=== PATIENT | female | born 1945 | race Caucasian/White ===

== ENCOUNTER 2018-04-12 11:58 | Observation (INO) ==
[2018-04-12] MEDS ORDERED: Naloxone 0.4 MG/ML INJ IVP PRN (15:32)
[2018-04-12] MEDS ORDERED: Acetaminophen 325 MG TABLET PO PRN (15:32)
[2018-04-12] MEDS ORDERED: D5% in Water 1,000 ML IVC PRN (15:37)
[2018-04-12] MEDS ORDERED: *HR* Dextrose 50 % in Water (Syg) 50 ML SYRINGE IVP PRN (15:37)
[2018-04-12] MEDS ORDERED: Dextrose Gel 15 GM/37.5 ML TUBE PO PRN ×2 (15:37)
[2018-04-12 16:16] LABS: INR 2.2; Prothrombin Time 24.4 Seconds (9.4-12.1)
--- NOTE | 2018-04-12 16:23 | Internal Med History&Physical ---
Date of Encounter: 04/12/18 Time of Encounter: 16:17 Internal Medicine - H&P: HPI Chief complaint: bradycardia Admitted From: Home Plans for Post Hospital Care: Home History of present illness: Ms. Nash is a 72 year old female past medical history significant for diabetes, A. fib, bilateral total knee replacement, hypertension and hyperlipidemia. Patient was transferred to this hospital from [place] emergency room where the patient went following a fall this morning at around 9 AM. The patient recalls that today morning she felt that she was on A. fib, base and checking her pulse and while she was getting out of the tub she slip, fell and he her left hip and left side of the chest. For which she went to [place] emergency room. She denies lightheadedness, dizziness, shortness of breath or chest pain before the fall. Also denies hitting her head or losing consciousness. While in the emergency room and [place] the patient became bradycardic with a heart rate of 32 which was managed with IV fluid and atropine. And the patient was transferred to this hospital for further evaluation. Patient reports that she usually takes an extra dose of half a pill of metoprolol when she feels that she is on A. fib. But recalls that today she has not taken any medication. Past Med Surg Social Fam HX - Past Medical History Medical history: diabetes, GERD, atrial fibrillation, hyperlipidemia, hypertension Additional medical history: anxiety/depression Psychiatric history: anxiety, depression - Past Surgical History Additional surgical history: BILAT KNEE REPLACEMENT, LT FOOT SURG, D&C X 2 - Social History Smoking Status: Former smoker Smokeless Tobacco Status: No Alcohol use: none Drug use: none - Family History Mother Hx Family Cardiac Disorders: Yes Father Hx Family Cardiac Disorders: Yes Internal Medicine - H&P: Meds Aspirin [Lo-Dose Aspirin EC] 81 mg PO DAILY 06/06/17 [History] Atorvastatin [Lipitor] 10 mg PO HS 06/06/17 [History] Calcium Citrate/Vitamin D2 [Calcium with Vit D Tablet] 1 each PO DAILY 06/06/17 [History] Cholecalciferol (D-3) [Vitamin D] 1,000 unit PO DAILY 06/06/17 [History] Dicyclomine [Bentyl] 10 mg PO QID PRN 06/06/17 [History] Ergocalciferol (VITAMIN D2) [Vitamin D] 400 unit PO DAILY 06/06/17 [History] Esomeprazole Magnesium [Nexium] 40 mg PO DAILY 06/06/17 [History] Fluvoxamine Maleate [Fluvoxamine Maleate ER] 100 mg PO DAILY 06/06/17 [History] Furosemide [Lasix] 30 mg PO DAILY 06/06/17 [History] Insulin ASPART [Novolog] 8 unit SQ ACHS 06/06/17 [History] Insulin Glargine,Hum.rec.anlog [Lantus Solostar] 38 unit SQ HS 06/06/17 [History ] LORazepam [Ativan] 0.5 mg PO TID PRN 06/06/17 [History] Metformin HCl [Glucophage Xr] 500 mg PO DAILY 06/06/17 [History] Metoprolol Tartrate [Lopressor] 50 mg PO BID 06/06/17 [History] Multivit-Min/FA/Lycopen/Lutein [Centrum Silver Tablet] 1 each PO DAILY 06/06/17 [History] Ubidecarenone [Coq10] 50 mg PO DAILY 06/06/17 [History] Valsartan [Diovan] 160 mg PO DAILY 06/06/17 [History] Warfarin [Coumadin] 5 mg PO 1800 06/06/17 [History] amLODIPine [Norvasc] 5 mg PO DAILY 06/06/17 [History] Insulin ASPART [NovoLOG] See Protocol SQ ACHS 04/12/18 [History] 3 Allergy/AdvReac Type Severity Reaction Status Date / Time Minocycline [From Minocin] Allergy Hives Verified 06/06/17 19:45 Sulfa (Sulfonamide Allergy Rash Verified 11/12/15 05:37 Antibiotics) sulfamethoxazole Allergy Rash Verified 11/12/15 05:37 [From Bactrim] trimethoprim [From Bactrim] Allergy Rash Verified 11/12/15 05:37 amiodarone AdvReac See Verified 11/12/15 05:37 Comments azithromycin [From Zithromax] AdvReac Back Pain Verified 11/12/15 05:37 Cefaclor [From Ceclor] AdvReac See Verified 11/12/15 05:37 Comments ciprofloxacin [From Cipro] AdvReac See Verified 11/12/15 05:37 Comments dronedarone [From Multaq] AdvReac See Verified 11/12/15 05:37 Comments Erythromycin Base AdvReac Back Pain Verified 11/12/15 05:37 nifedipine [From Procardia] AdvReac See Verified 11/12/15 05:37 Comments ofloxacin [From Floxin] AdvReac Joint Pain Verified 11/12/15 05:37 Penicillins AdvReac See Verified 11/12/15 05:37 Comments Tetracyclines AdvReac Nausea Verified 11/12/15 05:37 All Systems PM: A 10-system review of systems was performed and is negative for pertinent findings except as documented above in the HPI. - Constitutional Constitutional: chills, no fever(s), no lethargy, no malaise, no weakness, no weight loss - EENT Eyes: no blurry vision, no floaters, no loss of peripheral vision Nose, mouth and throat: no change in voice, no dry mouth - Cardiovascular Cardiovascular ROS IM: no chest pain, no edema, no irregular heart rhythm, no lightheadedness, no orthopnea, no palpitations, no paroxysmal nocturnal dyspnea , no syncope - Respiratory Respiratory: no cough, no wheezing, no snoring - Gastrointestinal Gastrointestinal: no coffee ground emesis, no excessive flatus, no hematemesis, no hematochezia, no melena, no nausea, no vomiting - Musculoskeletal Musculoskeletal ROS IM: no back pain, no muscle cramps, no numbness, no stiffness - Psychiatric Psychiatric: no anxiety, no confusion, no depression - Constitutional Vitals: Temp Pulse Resp BP Pulse Ox 97.9 F 63 18 156/75 99 04/12/18 14:28 04/12/18 14:28 04/12/18 14:28 04/12/18 14:28 04/12/18 14:28 Exam: General: Alert and oriented 4. no acute distress Skin: Normal color, no rash, no lesions. HEENT:EOM, pupils equal, round and reactive. Cardiovascular: Irregularly, irrregular, Normal S1 & S2, no rubs, murmurs or gallops.Unable to eval JVD due to short neck. Lungs: Clear to auscultation bilaterally, no wheezes or crackles. Abdomen: Obese, Soft, non-tender, no rigidity. Extremities:No deformity, no edema or tenderness, no joint swelling or clubbing. b/l surgical scars at both knees. Neurological: Normal cognition and motor skills. CN II-XII intact. Rest of the physical exam is non contributory - Assessment and plan (1) Bradycardia Current Visit: No Status: Acute Assessment and plan: Patient transferred to this hospital due to an episode of bradycardia HR 32, given atropine. NO chest pain, lightheadedness or dizziness. No signs of active infectious process. 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 BMP for electrolytes abnormalities. 12 lead EKG (2) History of atrial fibrillation Current Visit: No Status: Acute Assessment and plan: Patient presenting with bradycardia Plan: plan of care as per #1 problem will continue Warfarin, pharmacy dosing Will continue Metoprolol 25mg/PO BID with holding parameters for HR <60. As per patient if she misses a dose of her medication she will go into A.fib with RvR. Cardiology consulted. 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 Qualifiers: Hypertension type: unspecified Qualified Code(s): I10 - Essential (primary ) hypertension (5) HLD (hyperlipidemia) Current Visit: Yes Status: Acute Assessment and plan: Continue home medication. Atorvastatin 10mg/PO daily Qualifiers: Qualified Code(s): E78.5 - Hyperlipidemia, unspecified (6) Fall Current Visit: No Status: Acute Assessment and plan: No head trauma. 3 XRAY VIEWS OF THE LEFT HIP: No acute fracture or dislocation is identified. SINGLE XRAY VIEW OF THE CHEST: Questionable nondisplaced fracture of the left 5th rib. No pneumothorax. The lungs are clear. Plan Pain control with tramadol 50mg/PO Q6HR PRN for pain incentive spirometry Qualifiers: Encounter type: initial encounter Qualified Code(s): W19.XXXA - Unspecified fall, initial encounter - Time Spent With Patient Total time spent is greater than 50% in coordination of care (as documented) at patient's floor/unit and/or counseling patient: Greater than 35 minutes
[2018-04-12 16:30] LABS: Magnesium 2.2 mg/dL (1.6-2.6); Phosphorous 2.9 mg/dL (2.7-4.5)
[2018-04-12 16:50] LABS: Thyroid Stimulating Hormone 1.775 mcIU/mL (0.340-5.600)
[2018-04-12] MEDS: Insulin LISPRO 300 UNITS/3 ML VIAL SQ SCH ×3 (17:36→22:37)
[2018-04-12] MEDS ORDERED: *HR* Warfarin 5 MG TABLET PO ONE (18:00)
[2018-04-12 18:14] LABS: Estimated Average Glucose 166 mg/dl; Hemoglobin A1C 7.4 %
[2018-04-12] MEDS: Warfarin perPT PO SCH (19:11)
[2018-04-12] MEDS ORDERED: Insulin DETEMIR 100 UNIT/ML X5UNITS SQ SCH (21:00)
[2018-04-13 04:46] LABS: Basophils # 0.1 K/mcL (0.0-0.2); Basophils % 0.8 %; Eosinophils # 0.2 K/mcL (0.0-0.6); Eosinophils % 1.8 %; Hematocrit 35.7 % (35.3-44.9); Immature Granulocytes % 0.3 % (0-4); Lymphocytes # 4.5 K/mcL (0.6-4.6); Lymphocytes % 44.1 %; Mean Corpuscular HGB Conc 30.8 g/dL (31.6-35.5); Mean Corpuscular Hemoglobin 26.3 pg (28.0-33.3); Mean Corpuscular Volume 85.4 fL (83.0-100.0); Mean Platelet Volume 12.3 fL (9.4-12.4); Monocytes # 0.9 K/mcL (0.0-1.3); Neutrophils # 4.5 K/mcL (1.6-8.9); Platelet Count 190 K/mcL (140-400); Red Blood Count 4.18 M/mcL (3.82-4.97); Red Cell Distribution Width 15.4 % (11.5-14.5)
[2018-04-13 04:52] LABS: INR 2.4; Prothrombin Time 27.3 Seconds (9.4-12.1)
[2018-04-13 05:01] LABS: BUN/Creatinine Ratio 23 (6-26); Blood Urea Nitrogen 18 mg/dL (8-23); Calcium 9.4 mg/dL (8.6-10.3); Carbon Dioxide 27 mEq/L (23-29); Chloride 110 mEq/L (98-107); Chol/HDL Ratio 2.3 (0-4.9); Cholesterol 140 mg/dL (< 200); Glucose 63 mg/dL (70-105); HDL Cholesterol 61 mg/dL (40-59); LDL Cholesterol,Calculated 67 mg/dL (0-99); Osmolality,Calculated 292 (280-300); Potassium 4.3 mEq/L (3.5-5.1); Sodium 141 mEq/L (136-145); Triglycerides 62 mg/dL (< 150); eGFR For Non-African Americans > 60 (> 60)
--- NOTE | 2018-04-13 09:31 | Cardiology Consult Note ---
Date of Encounter: 04/13/18 Time of Encounter: 08:30 Assessment and Plan (1) Fall Current Visit: Yes Status: Acute Per cardiology: -Admitted with mechanical fall at home. -Management per primary service. Qualifiers: Encounter type: initial encounter Qualified Code(s): W19.XXXA - Unspecified fall, initial encounter (2) Tachy-oscar syndrome Current Visit: Yes Status: Acute Per cardiology: -Known PAF, on coumadin for anticoagulation. -Per ER notes, was a.fib RVR HRs 120-160s on admission. -Converted to SR and was bradycardic, given atropine. -Average HR previous 12 hours noted to be 48, SB. -On metoprolol 50mg BID at home, decreased to 25mg BID here. -HR currently 50-60s. -TSH, Mg, K within normal limits. -Will stop metoprolol 25mg BID, will start 12.5mg BID. -Consider EP consult inpatient, versus outpatient. (3) Chest pain Current Visit: Yes Status: Acute Per cardiology: -Reports atypical chest pain at rest, while thinking about current life stressors. -Denies exertional symptoms. -ECG with no acute ischemic changes. -Troponins negative x4. -Stress 08/2017 outside facility, negative. -TTE 08/2017 with reported LVEF 65%. -[facility] 2012 with no intervention. -Suspect chest pain related to emotional stressors. Qualifiers: Chest pain type: unspecified Qualified Code(s): R07.9 - Chest pain, unspecified Discussion w patient/family: The assessment and plan as outlined above was discussed with the patient who expressed understanding and agreement. All questions were answered. Thank you for involving us in the care of your patient. Please call with any questions. Discussed and reviewed with . History of Present Illness Consult date: 04/12/18 Requesting physician: Long Friedman Consult reason: a.fib, bradycardia Chief complaint: fall History of present illness: Ms. Nash is a 72 year old female with a relevant past medical history of PAF anticoagulated with coumadin, DM, HTN, obesity, OCD, GERD, HLD, LUPILLO- compliant with CPAP who presented to [facility] after a fall at home. Patient reports she woke up yesterday and noticed she was in a.fib. Patient states she feels fluttering when in a.fib. Patient states she then took an ativan and went into shower. Patient states she was getting out of shower when she slipped and fell on left side. Patient denies dizziness, lightheadedness, loss of consciousness. Patient then called squad and was transferred to [place]. Per ER reports patient was a.fib RVR, HRs 120-160s and was given IV normal saline and morphine. Patient then converted to SR and was bradycardic, HRs 30s. Patient was given atropine. Patient was then transferred to [facility]. Patient also reports some intermittent chest pain at rest, while laying in bed. Patient states she notices pain when she has been thinking about current stressors in life. Patient states recent 3 deaths in her family, including her granddaughter. Patient tearful at bedside. Patient denies shortness of breath. Regarding previous a.fib, patient follows with at [place]. Patient states at one point was taken off of metoprolol due to bradycardia, however went back into a.fib RVR and metoprolol was resumed. Patient also states did not tolerate multiple previous cardiac medications. Patient reports recent TTE and stress test with . Past Med Surg Social Fam HX - Past Medical History Attestation: Yes The following information was validated with the patient. Source: patient, old records reviewed Medical history: diabetes, GERD, atrial fibrillation, hyperlipidemia, hypertension Additional medical history: anxiety/depression Psychiatric history: anxiety, depression - Past Surgical History Additional surgical history: BILAT KNEE REPLACEMENT, LT FOOT SURG, D&C X 2 - Social History Smoking Status: Former smoker Smokeless Tobacco Status: No Alcohol use: none Drug use: none - Family History Mother Hx Family Cardiac Disorders: Yes Father Hx Family Cardiac Disorders: Yes Medications and Allergies Aspirin [Lo-Dose Aspirin EC] 81 mg PO DAILY 06/06/17 [History] Atorvastatin [Lipitor] 10 mg PO HS 06/06/17 [History] Calcium Citrate/Vitamin D2 [Calcium with Vit D Tablet] 1 each PO DAILY 06/06/17 [History] Cholecalciferol (D-3) [Vitamin D] 1,000 unit PO DAILY 06/06/17 [History] Dicyclomine [Bentyl] 10 mg PO QID PRN 06/06/17 [History] Esomeprazole Magnesium [Nexium] 40 mg PO DAILY 06/06/17 [History] Fluvoxamine Maleate [Fluvoxamine Maleate ER] 100 mg PO DAILY 06/06/17 [History] Furosemide [Lasix] 30 mg PO DAILY 06/06/17 [History] Insulin ASPART [Novolog] 8 unit SQ ACHS 06/06/17 [History] Insulin Glargine,Hum.rec.anlog [Lantus Solostar] 38 unit SQ HS 06/06/17 [History ] LORazepam [Ativan] 0.5 mg PO TID PRN 06/06/17 [History] Metformin HCl [Glucophage Xr] 500 mg PO DAILY 06/06/17 [History] Metoprolol Tartrate [Lopressor] 50 mg PO BID 06/06/17 [History] Multivit-Min/FA/Lycopen/Lutein [Centrum Silver Tablet] 1 each PO DAILY 06/06/17 [History] Ubidecarenone [Coq10] 50 mg PO DAILY 06/06/17 [History] Valsartan [Diovan] 160 mg PO DAILY 06/06/17 [History] Warfarin [Coumadin] 5 mg PO 1800 06/06/17 [History] amLODIPine [Norvasc] 5 mg PO DAILY 06/06/17 [History] Insulin ASPART [NovoLOG] See Protocol SQ ACHS 04/12/18 [History] 3 Allergy/AdvReac Type Severity Reaction Status Date / Time Minocycline [From Minocin] Allergy Hives Verified 06/06/17 19:45 Sulfa (Sulfonamide Allergy Rash Verified 11/12/15 05:37 Antibiotics) sulfamethoxazole Allergy Rash Verified 11/12/15 05:37 [From Bactrim] trimethoprim [From Bactrim] Allergy Rash Verified 11/12/15 05:37 amiodarone AdvReac See Verified 11/12/15 05:37 Comments azithromycin [From Zithromax] AdvReac Back Pain Verified 11/12/15 05:37 Cefaclor [From Ceclor] AdvReac See Verified 11/12/15 05:37 Comments ciprofloxacin [From Cipro] AdvReac See Verified 11/12/15 05:37 Comments dronedarone [From Multaq] AdvReac See Verified 11/12/15 05:37 Comments Erythromycin Base AdvReac Back Pain Verified 11/12/15 05:37 nifedipine [From Procardia] AdvReac See Verified 11/12/15 05:37 Comments ofloxacin [From Floxin] AdvReac Joint Pain Verified 11/12/15 05:37 Penicillins AdvReac See Verified 11/12/15 05:37 Comments Tetracyclines AdvReac Nausea Verified 11/12/15 05:37 All Systems Review: The remainder of the systems were reviewed and are negative - Cardiovascular Cardiovascular: as per HPI, chest pain at rest, palpitations, rapid heart rate Physical Examination Vital Signs, Last 4 Hours Temp Pulse Resp BP Pulse Ox 04/13/18 06:30 97.4 F L 56 15 117/75 95 General: Conversant, No Apparent Distress HEENT: Atraumatic, Normocephaly, Mucus Membranes Moist Neck: No JVD, Normal carotid pulses Cardiac: Reg Rate and Rhythm, Normal S1 and S2, No Murmur Lungs: Normal Breath Sounds, No Wheeze, Rales, Rhonchi Neuro: Alert and responsive, No focal deficits noted Abdomen: Soft, Non-Tender Skin: No rashes noted on visualized skin Musculoskeletal: No Chest Wall Tenderness Extremities: No Clubbing, No Cyanosis, Normal Pulses, Other (Mild bilateral pedal edema noted, non-pitting. ) Results 04/13/18 04:16 04/13/18 04:16 Lab Results Active Medications Acetaminophen (Tylenol) 650 mg PO Q6HR PRN PRN Reason: Mild Pain/Fever Stop: 10/12/18 15:33 Aspirin (Aspirin) 81 mg PO DAILY ANGIE Stop: 10/13/18 09:01 Atorvastatin Calcium (Lipitor) 10 mg PO HS ANGIE Stop: 10/12/18 21:01 Last Admin: 04/12/18 22:08 Dose: 10 mg Dextrose/Water (Dextrose 50% (Syg)) 25 ml IVP AD PRN PRN Reason: Hypoglycemia Stop: 10/12/18 15:38 Fluvoxamine Maleate (Luvox) 100 mg PO HS ANGIE Stop: 10/12/18 23:16 Last Admin: 04/12/18 23:37 Dose: 100 mg Furosemide (Lasix) 20 mg IVP DAILY ANGIE Stop: 10/13/18 09:01 Glucagon (Glucagen) 1 mg IM ONCE PRN PRN Reason: Hypoglycemia Stop: 10/12/18 15:38 Glucose (Gluctose) 15 gm PO ONCE PRN PRN Reason: Hypoglycemia Stop: 10/12/18 15:38 Glucose (Gluctose) 30 gm PO ONCE PRN PRN Reason: Hypoglycemia Stop: 10/12/18 15:38 Dextrose (Dextrose 5%) 1,000 mls @ 100 mls/hr IVC .Q10H PRN PRN Reason: HYPOGLYCEMIA Stop: 10/12/18 15:38 Insulin Detemir (Levemir) 5 unit SQ HS [facility] Stop: 10/12/18 21:01 Last Admin: 04/12/18 22:26 Dose: 5 unit Insulin Human Lispro (Humalog) 2 units SQ TIDWM [facility] Stop: 10/12/18 17:01 Last Admin: 04/12/18 17:36 Dose: Not Given Insulin Human Lispro (Humalog) 0 units SQ TIDAC [facility] PRN Reason: Protocol Stop: 10/12/18 16:31 Last Admin: 04/12/18 17:36 Dose: Not Given Insulin Human Lispro (Humalog) 0 units SQ [facility] PRN Reason: Protocol Stop: 10/12/18 22:31 Last Admin: 04/12/18 22:37 Dose: 5 units Naloxone HCl (Narcan) 0.4 mg IVP Q2MIN PRN PRN Reason: SEE COMMENTS Stop: 10/12/18 15:33 Valsartan (Diovan) 160 mg PO DAILY [facility] Stop: 10/13/18 09:01 Warfarin Sodium (Coumadin Perpt) 5 each PO DAILY@1800 [facility] Stop: 10/12/18 18:01 Last Admin: 04/12/18 19:11 Dose: Not Given Laboratory Tests 04/12/18 04/12/18 04/12/18 09:40 16:00 16:00 Hgb INR Creatinine Magnesium 2.2 Troponin I < 0.03 < 0.03 TSH 1.775 04/12/18 04/13/18 04/13/18 21:35 04:16 04:16 Hgb 11.0 L D INR Creatinine Magnesium Troponin I < 0.03 < 0.03 TSH 04/13/18 04/13/18 04:16 04:16 Hgb INR 2.4 Creatinine 0.80 Magnesium Troponin I TSH - Imaging and Cardiology Chest Xray: report reviewed Echo: report reviewed - EKG Interpretation EKG results cardiology: personally reviewed (ECG 9/23/18 1723 with SB, HR 51.), other (Telemetry reviewed with average HR previous 12 hours noted to be 48, SB. PVCs and PACs noted.) Consult Discharge Plan - Plan Referrals: Jozef Godinez MD [Primary Care Provider] -
[2018-04-13] MEDS: Aspirin 81 MG TAB.CHEW PO SCH (10:30)
[2018-04-13] MEDS: Valsartan 160 MG TABLET PO SCH (10:30)
[2018-04-13] MEDS: Insulin LISPRO 300 UNITS/3 ML VIAL SQ SCH ×7 (10:30→20:41)
[2018-04-13] MEDS: Furosemide 20 MG/2 ML VIAL IVP SCH (10:30)
--- NOTE | 2018-04-13 12:46 | Electrophysiology Consult Note ---
<Jaydon Cruz - Last Filed: 04/13/18 13:13> Date of Encounter: 04/13/18 Time of Encounter: 12:45 Assessment and Plan (1) Tachy-oscar syndrome Current Visit: Yes Status: Acute Per EP: "Known PAF, on coumadin for anticoagulation. Per ER notes, was a.fib RVR HRs 120 -160s on admission. Converted to SR and was bradycardic, given atropine. Average HR previous 12 hours noted to be 48, SB. On metoprolol 50mg BID at home , decreased to 25mg BID here. HR currently 50-60s. TSH, Mg, K within normal limits". BB decreased to 12.5mg BID by cardiology team. Discussed with Dr. Alvaro Raphael, will monitor tele and most likely f/u in outpatient setting. Discussion w patient/family: The assessment and plan as outlined above was discussed with the patient and/or family members who expressed understanding and agreement. All questions were answered. Thank you for involving us in the care of your patient. Please call with any questions. History of Present Illness Consult date: 04/13/18 Requesting physician: Mechelle Centeno Consult reason: Tachybrady Chief complaint: Irregular heart rate, fall History of present illness: EP Consult: Previous medical records reviewed: "Ms. Nash is a 72 year old female with a relevant past medical history of PAF anticoagulated with coumadin, DM, HTN, obesity, OCD, GERD, HLD, LUPILLO- compliant with CPAP who presented to [facility] after a fall at home. Patient reports she woke up yesterday and noticed she was in a.fib. Patient states she feels fluttering when in a.fib. Patient states she then took an ativan and went into shower. Patient states she was getting out of shower when she slipped and fell on left side. Patient denies dizziness, lightheadedness, loss of consciousness. Patient then called [facility] and was transferred to [place]. Per ER reports patient was a.fib RVR, HRs 120-160s and was given IV normal saline and morphine. Patient then converted to SR and was bradycardic, HRs 30s. Patient was given atropine. Patient was then transferred to [facility]. Patient also reports some intermittent chest pain at rest, while laying in bed. Patient states she notices pain when she has been thinking about current stressors in life. Patient states recent 3 deaths in her family, including her granddaughter. Patient tearful at bedside. Patient denies shortness of breath. Regarding previous a.fib, patient follows with at [place]. Patient states at one point was taken off of metoprolol due to bradycardia, however went back into a.fib RVR and metoprolol was resumed. Patient also states did not tolerate multiple previous cardiac medications. Patient reports recent TTE and stress test with ". Above information verified. Reports had stress test and echo done in past 1 year. Currently denies any chest pain, short of breath, palpitations. Reports initially started on beta nicholas in the past for PVCs. Past Med Surg Social Fam HX - Past Medical History Attestation: Yes The following information was validated with the patient. Source: patient, old records reviewed Medical history: diabetes, GERD, atrial fibrillation, hyperlipidemia, hypertension Additional medical history: anxiety/depression Psychiatric history: anxiety, depression - Past Surgical History Additional surgical history: BILAT KNEE REPLACEMENT, LT FOOT SURG, D&C X 2 - Social History Smoking Status: Former smoker Smokeless Tobacco Status: No Alcohol use: none Drug use: none - Family History Mother Hx Family Cardiac Disorders: Yes Father Hx Family Cardiac Disorders: Yes Medications and Allergies Aspirin [Lo-Dose Aspirin EC] 81 mg PO DAILY 06/06/17 [History] Atorvastatin [Lipitor] 10 mg PO HS 06/06/17 [History] Calcium Citrate/Vitamin D2 [Calcium with Vit D Tablet] 1 each PO DAILY 06/06/17 [History] Cholecalciferol (D-3) [Vitamin D] 1,000 unit PO DAILY 06/06/17 [History] Dicyclomine [Bentyl] 10 mg PO QID PRN 06/06/17 [History] Esomeprazole Magnesium [Nexium] 40 mg PO DAILY 06/06/17 [History] Fluvoxamine Maleate [Fluvoxamine Maleate ER] 100 mg PO DAILY 06/06/17 [History] Furosemide [Lasix] 40 mg PO DAILY 06/06/17 [History] Insulin ASPART [Novolog] 8 unit SQ ACHS 06/06/17 [History] Insulin Glargine,Hum.rec.anlog [Lantus Solostar] 38 unit SQ HS 06/06/17 [History ] LORazepam [Ativan] 0.5 mg PO TID PRN 06/06/17 [History] Metformin HCl [Glucophage Xr] 500 mg PO DAILY 06/06/17 [History] Metoprolol Tartrate [Lopressor] 50 mg PO BID 06/06/17 [History] Multivit-Min/FA/Lycopen/Lutein [Centrum Silver Tablet] 1 each PO DAILY 06/06/17 [History] Ubidecarenone [Coq10] 50 mg PO DAILY 06/06/17 [History] Valsartan [Diovan] 160 mg PO DAILY 06/06/17 [History] Warfarin [Coumadin] 5 mg PO 1800 06/06/17 [History] amLODIPine [Norvasc] 5 mg PO DAILY 06/06/17 [History] Insulin ASPART [NovoLOG] See Protocol SQ ACHS 04/12/18 [History] 3 Allergy/AdvReac Type Severity Reaction Status Date / Time Minocycline [From Minocin] Allergy Hives Verified 06/06/17 19:45 Sulfa (Sulfonamide Allergy Rash Verified 11/12/15 05:37 Antibiotics) sulfamethoxazole Allergy Rash Verified 11/12/15 05:37 [From Bactrim] trimethoprim [From Bactrim] Allergy Rash Verified 11/12/15 05:37 amiodarone AdvReac See Verified 11/12/15 05:37 Comments azithromycin [From Zithromax] AdvReac Back Pain Verified 11/12/15 05:37 Cefaclor [From Ceclor] AdvReac See Verified 11/12/15 05:37 Comments ciprofloxacin [From Cipro] AdvReac See Verified 11/12/15 05:37 Comments dronedarone [From Multaq] AdvReac See Verified 11/12/15 05:37 Comments Erythromycin Base AdvReac Back Pain Verified 11/12/15 05:37 nifedipine [From Procardia] AdvReac See Verified 11/12/15 05:37 Comments ofloxacin [From Floxin] AdvReac Joint Pain Verified 11/12/15 05:37 Penicillins AdvReac See Verified 11/12/15 05:37 Comments Tetracyclines AdvReac Nausea Verified 11/12/15 05:37 All Systems Review: The remainder of the systems were reviewed and are negative - Cardiovascular Cardiovascular: as per HPI, irregular heart rhythm - Neurological Neurological: syncope Physical Examination Vital Signs, Last 4 Hours Temp Pulse Resp BP Pulse Ox 04/13/18 11:45 97.8 F 62 16 152/70 94 General: Conversant, No Apparent Distress HEENT: Atraumatic, Normocephaly, Mucus Membranes Moist Neck: No JVD, Normal carotid pulses Cardiac: Reg Rate and Rhythm, Normal S1 and S2, No Murmur Lungs: Normal Breath Sounds, No Wheeze, Rales, Rhonchi Neuro: Alert and responsive, No focal deficits noted Abdomen: Soft, Non-Tender Skin: No rashes noted on visualized skin Musculoskeletal: No Chest Wall Tenderness Extremities: No Clubbing, No Cyanosis, No Edema, Normal Pulses Results 04/13/18 04:16 04/13/18 04:16 Lab Results Laboratory Tests 04/12/18 04/12/18 04/12/18 16:00 16:00 21:35 Hgb Hct INR Creatinine Est GFR (Non-Af Amer) Troponin I < 0.03 < 0.03 LDL Cholesterol, Calc TSH 1.775 04/13/18 04/13/18 04/13/18 04:16 04:16 04:16 Hgb 11.0 L D Hct 35.7 INR Creatinine 0.80 Est GFR (Non-Af Amer) > 60 Troponin I < 0.03 LDL Cholesterol, Calc 67 TSH 04/13/18 04:16 Hgb Hct INR 2.4 Creatinine Est GFR (Non-Af Amer) Troponin I LDL Cholesterol, Calc TSH Active Medications Acetaminophen (Tylenol) 650 mg PO Q6HR PRN PRN Reason: Mild Pain/Fever Stop: 10/12/18 15:33 Aspirin (Aspirin) 81 mg PO DAILY ANGIE Stop: 10/13/18 09:01 Last Admin: 04/13/18 10:30 Dose: 81 mg Atorvastatin Calcium (Lipitor) 10 mg PO HS ANGIE Stop: 10/12/18 21:01 Last Admin: 04/12/18 22:08 Dose: 10 mg Dextrose/Water (Dextrose 50% (Syg)) 25 ml IVP AD PRN PRN Reason: Hypoglycemia Stop: 10/12/18 15:38 Fluvoxamine Maleate (Luvox) 100 mg PO HS ANGIE Stop: 10/12/18 23:16 Last Admin: 04/12/18 23:37 Dose: 100 mg Furosemide (Lasix) 20 mg IVP DAILY [facility] Stop: 10/13/18 09:01 Last Admin: 04/13/18 10:30 Dose: 20 mg Glucagon (Glucagen) 1 mg IM ONCE PRN PRN Reason: Hypoglycemia Stop: 10/12/18 15:38 Glucose (Gluctose) 15 gm PO ONCE PRN PRN Reason: Hypoglycemia Stop: 10/12/18 15:38 Glucose (Gluctose) 30 gm PO ONCE PRN PRN Reason: Hypoglycemia Stop: 10/12/18 15:38 Dextrose (Dextrose 5%) 1,000 mls @ 100 mls/hr IVC .Q10H PRN PRN Reason: HYPOGLYCEMIA Stop: 10/12/18 15:38 Insulin Detemir (Levemir) 5 unit SQ HS [facility] Stop: 10/12/18 21:01 Last Admin: 04/12/18 22:26 Dose: 5 unit Insulin Human Lispro (Humalog) 2 units SQ TIDWM [facility] Stop: 10/12/18 17:01 Last Admin: 04/13/18 10:30 Dose: Not Given Insulin Human Lispro (Humalog) 0 units SQ TIDAC [facility] PRN Reason: Protocol Stop: 10/12/18 16:31 Last Admin: 04/13/18 10:31 Dose: Not Given Insulin Human Lispro (Humalog) 0 units SQ HS [facility] PRN Reason: Protocol Stop: 10/12/18 22:31 Last Admin: 04/12/18 22:37 Dose: 5 units Lorazepam (Ativan) 0.25 mg PO TID PRN PRN Reason: Anxiety Stop: 10/13/18 12:16 Metoprolol Tartrate (Lopressor) 12.5 mg PO BID [facility] Stop: 10/13/18 10:16 Naloxone HCl (Narcan) 0.4 mg IVP Q2MIN PRN PRN Reason: SEE COMMENTS Stop: 10/12/18 15:33 Valsartan (Diovan) 160 mg PO DAILY [facility] Stop: 10/13/18 09:01 Last Admin: 04/13/18 10:30 Dose: 160 mg Warfarin Sodium (Coumadin Perpt) 5 each PO DAILY@1800 ANGIE Stop: 10/12/18 18:01 Last Admin: 04/12/18 19:11 Dose: Not Given Warfarin Sodium (Coumadin) 5 mg PO 1800 ONE Stop: 04/13/18 18:01 - Imaging and Cardiology Stress Test: other (pending records from outside facility) Echo: other (pending records from outside facility) Cardiac cath: other - EKG Interpretation EKG results cardiology: personally reviewed Consult Discharge Plan - Plan Referrals: Jozef Godinez MD [Primary Care Provider] - <Alvaro Raphael - Last Filed: 04/13/18 15:53> Date of Encounter: 04/13/18 - Attending Attestation I have personally performed a face to face evaluation on this patient. I have reviewed and agree with the care plan. History and Exam by me shows: Tachy-oscar syndrome. Would likely benefit from pacemaker. Could be done as outpt. while she is off coumadin temporarily. Assessment and Plan Discussion w patient/family: The assessment and plan as outlined above was discussed with the patient and/or family members who expressed understanding and agreement. All questions were answered. Thank you for involving us in the care of your patient. Please call with any questions. History of Present Illness History of present illness: Ms. Nash is a 72 year old female All Systems Review: The remainder of the systems were reviewed and are negative Results 04/13/18 04:16 04/13/18 04:16 Lab Results 04/12/18 04/12/18 04/12/18 16:00 16:00 16:00 WBC Hgb Hct Plt Count INR 2.2 Sodium Potassium Chloride Carbon Dioxide BUN Creatinine Glucose Calcium Magnesium 2.2 Troponin I < 0.03 TSH 1.775 04/12/18 04/13/18 04/13/18 21:35 04:16 04:16 WBC 10.2 Hgb 11.0 L D Hct 35.7 Plt Count 190 INR Sodium Potassium Chloride Carbon Dioxide BUN Creatinine Glucose Calcium Magnesium Troponin I < 0.03 < 0.03 TSH 04/13/18 04/13/18 04:16 04:16 WBC Hgb Hct Plt Count INR 2.4 Sodium 141 Potassium 4.3 Chloride 110 H Carbon Dioxide 27 BUN 18 Creatinine 0.80 Glucose 63 L Calcium 9.4 Magnesium Troponin I TSH
[2018-04-13] MEDS: *HR* LORazepam 0.5 MG TABLET PO PRN ×2 (13:11→22:12)
--- NOTE | 2018-04-13 14:03 | Internal Med Progress Note ---
Hospitalist Progress Note - Encounter Date of Encounter: 04/13/18 Time of Encounter: 14:00 - Subjective Interval History: Patient evaluated at bedside, she reports doing well, denies lightheadedness or SOB. But report mild chest pain at the site where she hit herself following the fall. - Exam Vitals: Temp Pulse Resp BP Pulse Ox 97.8 F 62 16 152/70 94 04/13/18 11:45 04/13/18 11:45 04/13/18 11:45 04/13/18 11:45 04/13/18 11:45 Exam: General: Alert and oriented 4. no acute distress Cardiovascular: bradycardic, Irregularly, irrregular, Normal S1 & S2, no rubs, murmurs or gallops. Lungs: Clear to auscultation bilaterally, no wheezes or crackles. Abdomen: Obese, Soft, non-tender, no rigidity. Extremities: no edema or tenderness, no joint swelling or clubbing. b/l surgical scars at both knees. Neurological: Normal cognition. CN II-XII intact. Rest of the physical exam is non contributory - Assessment and Plan (1) Tachy-oscar syndrome Current Visit: Yes Status: Acute Assessment and Plan: cardiology and electrophysiology have evaluated the patient. recommended to continue metoprolol 12.5 mg/PO BID and to continue telemetry monitoring for 24 more hours. (2) History of atrial fibrillation Current Visit: No Status: Inactive Assessment and Plan: Plan of care as per #1. Continue warfarin, home dose. INR as per pharmacy protocol. (3) Diabetes Current Visit: Yes Status: Acute Assessment and Plan: blood sugar running in low 70s. Will discontinue levemir. continue sliding scale AC. Will monitor for adjustments if needed. (4) HTN (hypertension) Current Visit: Yes Status: Acute Assessment and Plan: BP well controlled. Continue valsartan 160mg/PO daily, plus furosemide 20mg/IV daily. (5) HLD (hyperlipidemia) Current Visit: Yes Status: Acute Assessment and Plan: Continue atorvastatin mg/PO HS (6) Fall Current Visit: No Status: Inactive Assessment and Plan: 3 XRAY VIEWS OF THE LEFT HIP: No acute fracture or dislocation is identified. SINGLE XRAY VIEW OF THE CHEST: Questionable nondisplaced fracture of the left 5th rib. No pneumothorax. The lungs are clear. Plan continue Pain control with tramadol 50mg/PO Q6HR PRN incentive spirometry - Summary of Assessment and Plan Summary of Assessment and Plan: patient to remain in the hospital for continue telemetry monitoring for at least 24 more hours as per cardiology recommendations. - Time Spent with Patient Total time spent is greater than 50% in coordination of care (as documented) at patient's floor/unit and/or counseling patient: 25 - 35 minutes Plan of Care Discussed with: patient (the family and the nurse.) Internal Medicine: Result - Labs CBC & Chem 7: 04/13/18 04:16 04/13/18 04:16 Labs: Short CBC 04/13/18 Range/Units 04:16 WBC 10.2 (4.3-11.1) K/mcL Hgb 11.0 L D (11.5-15.4) g/dL Hct 35.7 (35.3-44.9) % Plt Count 190 (140-400) K/mcL Neutrophils # 4.5 (1.6-8.9) K/mcL BMP 04/13/18 04:16 Sodium 141 Potassium 4.3 Chloride 110 H Carbon Dioxide 27 BUN 18 Creatinine 0.80 Glucose 63 L Calcium 9.4 Cardiac Enzymes 04/12/18 04/12/18 04/13/18 Range/Units 16:00 21:35 04:16 Troponin I < 0.03 < 0.03 < 0.03 (< 0.04) ng/mL - ABG Interpretation ABG results: PT/INR, D-dimer PT 27.3 Seconds (9.4-12.1) H 04/13/18 04:16 Consult Discharge Plan - Plan Referrals: Jozef Godinez MD [Primary Care Provider] - (3) Diabetes Qualifiers: Diabetes mellitus type: type 2 Diabetes mellitus assisted insulin use: 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
--- NOTE | 2018-04-13 16:14 | Event Note ---
Date of Encounter: 04/13/18 Time of Encounter: 16:15 - Cardiology Event Note Discussed with Dr. Alvaro Raphael and Dr. Elizondo, will attempt Lopressor 12.5mg PO BID. Will watch tele overnight. Plan for outpatient evaluation of pacer.
--- NOTE | 2018-04-13 17:18 | Electrocardiograph Report ---
[address] [place] [address] Test Date: 2018-04-12 Pat Name: Zaira Nash Department: 113 Room: 3B Gender: F [employer]: : 1945 Requested By: Long Friedman Order Number: [id number] Reading MD: Krista Mccormack Measurements Intervals [place] Rate: 51 P: 56 LA: 176 QRS: 10 QRSD: 94 T: 30 QT: 436 QTc: 413 Interpretive Statements SINUS BRADYCARDIA Electronically Signed On 04-13-2018 17:16:18 EDT by Krista Mccormack
[2018-04-13] MEDS ORDERED: *HR* Warfarin 5 MG TABLET PO ONE ×2 (18:00)
[2018-04-13] MEDS: Warfarin perPT PO SCH (22:13)
[2018-04-14 05:55] LABS: INR 2.7; Prothrombin Time 30.1 Seconds (9.4-12.1)
[2018-04-14] MEDS: Valsartan 160 MG TABLET PO SCH (08:15)
[2018-04-14] MEDS: Aspirin 81 MG TAB.CHEW PO SCH (08:16)
[2018-04-14] MEDS: *HR* LORazepam 0.5 MG TABLET PO PRN (08:16)
[2018-04-14] MEDS: Furosemide 20 MG/2 ML VIAL IVP SCH (08:17)
[2018-04-14] MEDS: Insulin LISPRO 300 UNITS/3 ML VIAL SQ SCH ×4 (08:17→11:51)
--- NOTE | 2018-04-14 10:16 | Cardiology Progress Note ---
Date of Encounter: 04/14/18 Time of Encounter: 09:30 Assessment and Plan (1) Fall Current Visit: Yes Status: Acute Per cardiology: -Admitted with mechanical fall at home. -Management per primary service. Qualifiers: Encounter type: initial encounter Qualified Code(s): W19.XXXA - Unspecified fall, initial encounter (2) Tachy-oscar syndrome Current Visit: Yes Status: Acute Per cardiology: -Known PAF, on coumadin for anticoagulation. -Per ER notes, was a.fib RVR HRs 120-160s on admission. -Converted to SR and was bradycardic, given atropine. -Average HR previous 12 hours noted to be 54, SB. -On metoprolol 50mg BID at home, decreased to 12.5mg BID here. -HR currently 50-60s. -TSH, Mg, K within normal limits. -Cardiology will sign off. Will arrange outpatient EP appointment. Patient is undecided whether she would be agreeable to outpatient pacemaker. Patient will discuss further with as outpatient. (3) Chest pain Current Visit: Yes Status: Acute Per cardiology: -Reports atypical chest pain at rest, while thinking about current life stressors. -Denies exertional symptoms. -ECG with no acute ischemic changes. -Troponins negative x4. -Stress 08/2017 outside facility, negative. -TTE 08/2017 with reported LVEF 65%. -[facility] 2012 with no intervention. -Suspect chest pain related to emotional stressors. Qualifiers: Chest pain type: unspecified Qualified Code(s): R07.9 - Chest pain, unspecified Discussion w patient/family: The assessment and plan as outlined above was discussed with the patient and sister per telephone who expressed understanding and agreement. All questions were answered. Thank you for involving us in the care of your patient. Please call with any questions. Discussed and reviewed with . Subjective Principal diagnosis: tachybrady Interval history: Patient reports feels sore from fall. Denies dizziness, ligthheadedness. Deneis chest pain. Objective Vital Signs, Last 4 Hours Temp Pulse Resp BP Pulse Ox 04/14/18 07:09 97.6 F 54 16 150/68 96 General: Conversant, No Apparent Distress HEENT: Atraumatic, Normocephaly, Mucus Membranes Moist Neck: No JVD, Normal carotid pulses Cardiac: Reg Rate and Rhythm, Normal S1 and S2, No Murmur Lungs: Normal Breath Sounds, No Wheeze, Rales, Rhonchi Neuro: Alert and responsive, No focal deficits noted Abdomen: Soft, Non-Tender Skin: No rashes noted on visualized skin Musculoskeletal: No Chest Wall Tenderness Extremities: No Clubbing, No Cyanosis, Normal Pulses, Other (Mild bilateral pedal edema noted, non-pitting. ) Results 04/13/18 04:16 04/13/18 04:16 Lab Results Active Medications Acetaminophen (Tylenol) 650 mg PO Q6HR PRN PRN Reason: Mild Pain/Fever Stop: 10/12/18 15:33 Aspirin (Aspirin) 81 mg PO DAILY [facility] Stop: 10/13/18 09:01 Last Admin: 04/14/18 08:16 Dose: 81 mg Atorvastatin Calcium (Lipitor) 10 mg PO HS [facility] Stop: 10/12/18 21:01 Last Admin: 04/13/18 22:12 Dose: 10 mg Dextrose/Water (Dextrose 50% (Syg)) 25 ml IVP AD PRN PRN Reason: Hypoglycemia Stop: 10/12/18 15:38 Fluvoxamine Maleate (Luvox) 100 mg PO HS [facility] Stop: 10/12/18 23:16 Last Admin: 04/13/18 22:12 Dose: 100 mg Furosemide (Lasix) 20 mg IVP DAILY [facility] Stop: 10/13/18 09:01 Last Admin: 04/14/18 08:17 Dose: Not Given Glucagon (Glucagen) 1 mg IM ONCE PRN PRN Reason: Hypoglycemia Stop: 10/12/18 15:38 Glucose (Gluctose) 15 gm PO ONCE PRN PRN Reason: Hypoglycemia Stop: 10/12/18 15:38 Glucose (Gluctose) 30 gm PO ONCE PRN PRN Reason: Hypoglycemia Stop: 10/12/18 15:38 Dextrose (Dextrose 5%) 1,000 mls @ 100 mls/hr IVC .Q10H PRN PRN Reason: HYPOGLYCEMIA Stop: 10/12/18 15:38 Insulin Human Lispro (Humalog) 2 units SQ TIDWM [facility] Stop: 10/12/18 17:01 Last Admin: 04/14/18 08:17 Dose: 2 units Insulin Human Lispro (Humalog) 0 units SQ TIDAC ANGIE PRN Reason: Protocol Stop: 10/12/18 16:31 Last Admin: 04/14/18 08:19 Dose: 4 units Insulin Human Lispro (Humalog) 0 units SQ HS ANGIE PRN Reason: Protocol Stop: 10/12/18 22:31 Last Admin: 04/13/18 20:41 Dose: Not Given Lorazepam (Ativan) 0.25 mg PO TID PRN PRN Reason: Anxiety Stop: 10/13/18 12:16 Last Admin: 04/14/18 08:16 Dose: 0.25 mg Metoprolol Tartrate (Lopressor) 12.5 mg PO BID ANGIE Stop: 10/13/18 21:01 Last Admin: 04/14/18 08:16 Dose: 12.5 mg Naloxone HCl (Narcan) 0.4 mg IVP Q2MIN PRN PRN Reason: SEE COMMENTS Stop: 10/12/18 15:33 Valsartan (Diovan) 160 mg PO DAILY [facility] Stop: 10/13/18 09:01 Last Admin: 04/14/18 08:15 Dose: 160 mg Warfarin Sodium (Coumadin Perpt) 5 each PO DAILY@1800 [facility] Stop: 10/12/18 18:01 Last Admin: 04/13/18 22:13 Dose: Not Given Warfarin Sodium (Coumadin) 2.5 mg PO 1800 ONE Stop: 04/14/18 18:01 - Imaging and Cardiology Chest Xray: report reviewed - EKG Interpretation EKG results cardiology: other (Telemetry reviewed with average HR previous 12 hours noted to be 54, SB. PACs noted.) Consult Discharge Plan - Plan Referrals: Jozef Godinez MD [Primary Care Provider] - (Requested a follow up appointment in 7-10 days with Gretchen Haskins. )
[2018-04-14 11:26] VITALS: BP 125/71
--- NOTE | 2018-04-14 13:14 | Discharge Summary ---
Orders not resulted at time of discharge: Pending orders 04/15/18 04:00 INR/PT [Prothrombin Time INR] [[facility]] AM 0400 04/16/18 04:00 INR/PT [Prothrombin Time INR] [[facility]] AM 0400 Date of Encounter: 04/14/18 Time of Encounter: 11:25 - Discharge Diagnosis (1) History of atrial fibrillation Priority: Secondary Status: Inactive Assessment and Plan: History of a-fib, rate controlled with decreased dose of BB. Continue warfarin , home dose. INR therapeutic. (2) Fall Priority: Secondary Status: Inactive Assessment and Plan: 3 XRAY VIEWS OF THE LEFT HIP: No acute fracture or dislocation is identified. SINGLE XRAY VIEW OF THE CHEST: Questionable nondisplaced fracture of the left 5th rib. No pneumothorax. The lungs are clear. Plan continue Pain control with tramadol 50mg/PO Q6HR PRN incentive spirometry 04/14- Pt states that she is feeling some better and pain is controlled. Continue with plan above. Qualifiers: Encounter type: initial encounter Qualified Code(s): W19.XXXA - Unspecified fall, initial encounter (3) Diabetes Priority: Secondary Status: Chronic Assessment and Plan: Accuchecks normal per pt. Continue home medications and restart Levemir at home. A1c 7.4%. Qualifiers: Diabetes mellitus type: type 2 Diabetes mellitus group home insulin use: unspecified group home insulin use status Diabetes mellitus complication status : with unspecified complications Qualified Code(s): E11.8 - Type 2 diabetes mellitus with unspecified complications (4) HTN (hypertension) Priority: Secondary Status: Chronic Assessment and Plan: Chronic. Well controlled. Continue home medications. Qualifiers: Hypertension type: unspecified Qualified Code(s): I10 - Essential (primary ) hypertension (5) HLD (hyperlipidemia) Priority: Secondary Status: Chronic Assessment and Plan: Chronic. Continue home medications. 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 Continue metoprolol 12.5 mg/PO BID and follow with cardiology for discussion regarding possible pacemaker placement. Pt is rate controlled and BP is well controlled. Continue anticoagulation. Hospital course: Please see assessment and plan for hospital course. Discharge discussed with: patient - Time Spent with Patient Total time spent providing and/or coordinating discharge services: Less than 30 minutes - Discharge Medications Prescriptions: Metoprolol [Lopressor] 12.5 mg PO BID #15 tablet Home Medications: Aspirin [Lo-Dose Aspirin EC] 81 mg PO DAILY 06/06/17 [History] Atorvastatin [Lipitor] 10 mg PO HS 06/06/17 [History] Calcium Citrate/Vitamin D2 [Calcium with Vit D Tablet] 1 each PO DAILY 06/06/17 [History] Cholecalciferol (D-3) [Vitamin D] 1,000 unit PO DAILY 06/06/17 [History] Dicyclomine [Bentyl] 10 mg PO QID PRN 06/06/17 [History] Esomeprazole Magnesium [Nexium] 40 mg PO DAILY 06/06/17 [History] Fluvoxamine Maleate [Fluvoxamine Maleate ER] 100 mg PO DAILY 06/06/17 [History] Furosemide [Lasix] 40 mg PO DAILY 06/06/17 [History] Insulin ASPART [Novolog] 8 unit SQ ACHS 06/06/17 [History] Insulin Glargine,Hum.rec.anlog [Lantus Solostar] 38 unit SQ HS 06/06/17 [History ] LORazepam [Ativan] 0.5 mg PO TID PRN 06/06/17 [History] Metformin HCl [Glucophage Xr] 500 mg PO DAILY 06/06/17 [History] Multivit-Min/FA/Lycopen/Lutein [Centrum Silver Tablet] 1 each PO DAILY 06/06/17 [History] Ubidecarenone [Coq10] 50 mg PO DAILY 06/06/17 [History] Valsartan [Diovan] 160 mg PO DAILY 06/06/17 [History] Warfarin [Coumadin] 5 mg PO 1800 06/06/17 [History] amLODIPine [Norvasc] 5 mg PO DAILY 06/06/17 [History] Insulin ASPART [NovoLOG] See Protocol SQ ACHS 04/12/18 [History] Metoprolol [Lopressor] 12.5 mg PO BID #15 tablet 04/14/18 [Rx] Allergies/Adverse Reactions: 3 Allergy/AdvReac Type Severity Reaction Status Date / Time Minocycline [From Minocin] Allergy Hives Verified 06/06/17 19:45 Sulfa (Sulfonamide Allergy Rash Verified 11/12/15 05:37 Antibiotics) sulfamethoxazole Allergy Rash Verified 11/12/15 05:37 [From Bactrim] trimethoprim [From Bactrim] Allergy Rash Verified 11/12/15 05:37 amiodarone AdvReac See Verified 11/12/15 05:37 Comments azithromycin [From Zithromax] AdvReac Back Pain Verified 11/12/15 05:37 Cefaclor [From Ceclor] AdvReac See Verified 11/12/15 05:37 Comments ciprofloxacin [From Cipro] AdvReac See Verified 11/12/15 05:37 Comments dronedarone [From Multaq] AdvReac See Verified 11/12/15 05:37 Comments Erythromycin Base AdvReac Back Pain Verified 11/12/15 05:37 nifedipine [From Procardia] AdvReac See Verified 11/12/15 05:37 Comments ofloxacin [From Floxin] AdvReac Joint Pain Verified 11/12/15 05:37 Penicillins AdvReac See Verified 11/12/15 05:37 Comments Tetracyclines AdvReac Nausea Verified 11/12/15 05:37 Date of admission: 04/12/18 14:02 Primary care physician: Jozef Godinez MD Consults: 04/12/18 16:27 Consult to Cardiology [CONS] Routine Comment: Consulting Provider: Cardiology Peg Reason for Consult: Bradycardia. Hx of A.fib Call Completed: No 04/13/18 11:16 Consult to Electrophysiology (EP) [CONS] Routine Consulting Provider: Electrophysiology Peg Reason for Consult: tachybrady Call Completed: Yes Discharging clinician: Donya Felix Anticipated date of discharge: 04/14/18 - Constitutional Vitals: Temp Pulse Resp BP Pulse Ox 97.8 F 53 18 125/71 96 04/14/18 11:10 04/14/18 11:10 04/14/18 11:10 04/14/18 11:10 04/14/18 11:10 General appearance: Present: cooperative, A&O X 3, pleasant, no acute distress, answers questions appropriately Exam: As above. - Head Head exam: Present: atraumatic, normal inspection, normocephalic - Eye Eye exam: Present: normal appearance, conjuntiva pink, sclera anicteric - Neck Neck exam general surgery: Present: supple, trachea midline. Absent: lymphadenopathy, tenderness - Respiratory Respiratory exam: Present: CTAB. Absent: accessory muscle use, rales, respiratory distress, rhonchi, wheezes - Cardiovascular Cardiovascular exam: Present: RRR, +S1, +S2. Absent: diastolic murmur, gallop, rubs, systolic murmur - GI/Abdominal GI/Abdominal exam: Present: normal bowel sounds, soft. Absent: distended, hepatomegaly, tenderness - Extremities Exam Extremities exam: Present: normal capillary refill, normal inspection, warm, radial pulses palpable and symmetrical. Absent: calf tenderness, cyanotic, pedal edema, tenderness - Neurological Exam Neurological exam: Present: alert, oriented X3, no focal deficits. Absent: facial droop, speech deficit - Skin Skin exam: Present: dry, intact, normal color, warm. Absent: rash - Patient Status Disposition: Home, Self-Care Condition: Good Functional capacity at discharge: independent ambulation Overall status at discharge: patient is back to baseline - Discharge Instructions Follow Up With: Jozef Godinez MD [Primary Care Provider] - (Requested a follow up appointment in 7-10 days with Gretchen Haskins. ) Additional Instructions: Please follow up with your PCP in the next 2-3 days for a recheck Follow up with cardiology as scheduled. If your a-fib returns, please return to the ER [facility] for any other problems or concerns. Take your medications as directed, your new prescription is at your pharmacy. Return to your normal diet and activities as tolerated. - Diet and Activity Activity: increase activity as tolerated Diet: advance to your usual diet, diabetic diet
[2018-04-14] MEDS ORDERED: *HR* Warfarin 2.5 MG TABLET PO ONE (18:00)
== END 2018-04-14 15:36 | disposition home or self-care (01) ==
LOC: 3BNU
PROVIDERS: ADMIT Internal Medicine; ATTEND Internal Medicine